=== PATIENT | female | born 2000 | race Two or more races ===

== ENCOUNTER 2025-03-10 09:07 | Outpatient (AMB) | payer MEDICAID, SELFPAY ==
[2025-03-10 09:30] VITALS: BP 100/64; PULSE 98; RESP 17; TEMP 36.6; O2SAT 98; BMI 26.0
--- NOTE | 2025-03-10 09:30 | OBCLNT_ITS ---
Vital Signs 03/10/25 09:30 Height 1.57 m Height Method Stated Weight 64.637 kg Weight Measurement Method Standing Scale BMI 26.0 BP 100/64 Blood Pressure Source Automatic Cuff Blood Pressure Location Right Upper Arm Position Sitting Respiration 17 Pulse 98 Pulse Source Monitor Temp 97.8 F Temp Source Temporal Artery Scan Pulse Oximetry (%) 98 Oxygen Delivery Method Room Air Allergies/Home Meds Allergies & Medications Allergies No Known Allergies Allergy (Verified 03/10/25 09:31) Medication Reconciliation acetaminophen 325 mg tablet (Tylenol) 325 mg PO Q8HR PRN Pain 01/21/24 [History Confirmed 03/10/25] [id number] 1 mg tablet 1 tab PO QDAY 01/21/24 [History Confirmed 03/10/25] Intake Visit Data Collection New Patient or Established: Established Patient (seen at [facility] within 3 years) Reason for Visit:: OBI Seen by Clinical Staff ONLY (RN/MA): No Financial Associate Required: No Do You Feel Safe at Home: Yes Authorities Contacted: N/A PCP or OBGYN visit in last 3 months: Yes Date of Last PCP or OBGYN visit: 01/24/25 Hx Now: Yes Are you currently on any form of Control: No Last menstrual period: 11/06/24 Pain Present Currently: No Pain Scale Used: Osborn-[place]/Numerical Pain scale:: 0 Smoking Status Smoking Status: Never smoker Questionnaires Covid-19 Vaccine Questionnaire Has patient been vacinated for Covid-19 Have you been vacinated for Covid-19: No PHQ-9 PHQ-2 Over the last 2 weeks, how often have you been bothered by any of the following problems? 1. Little interest or pleasure in doing things: not at all 2. Feeling down, depressed, or hopeless: not at all Total score: 0 PHQ-9 3. Trouble falling or staying asleep, or sleeping too much: Not at all 4. Feeling tired or having little energy: Not at all 5. Poor appetite or overeating: Not at all 6. Feeling bad about yourself - or that you are a failure or have let yourself or your family down: Not at all 7. Trouble concentrating on things, such as reading the newspaper or watching television: Not at all 8. Moving or speaking so slowly that other people could have noticed? - Or the opposite - being so fidgety or restless that you have been moving around a lot more than usual: not at all 9. Thoughts that you would be better off or of hurting yourself in some way: Not at all Total score: 0 If you checked off any problems, how difficult have these problems made it for you to do your work, take care of things at home, or get along with other people?: not difficult at all Source: Developed by Drs. Jose E Johnson, Kimberly Veliz, Giovani Douglas and colleagues, with an educational rosemarie from [employer]. 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: Past Medical History Past Medical History: No Hx Neurological Disorders, No Hx Cardiac Disorders, No Hx Cancer, Yes Hx Blood Disorders, Yes Hx Anemia, Yes Hx Gastrointestinal Disorders, No Hx Renal Disease, No Hx Diabetes Mellitus Type 1 and No Hx Diabetes Mellitus Type 2 OB Initial Visit Menstrual History Menstrual reliability: definite Flow: normal Menstrual regularity: regular Monthly: Yes Age at menarche: 14 On control pills at conception: No OB History : 2 Para: 1 # of Living Children: 1 Delivery History 1st : date: 12/11/23 sex: female Delivery type: History of depression before or after : No Infection History & Risk Evaluation History of STDs: none HIV risk evaluation: low risk Hepatitis B risk evaluation: low risk Patient or partner has history of Genital Herpes: No Varicella/chicken pox status: unknown Genetic Screening & History Genetic Screening/Teratology Counseling - Includes patient, baby's father, or anyone in either family with: 1. Patient's age 35 years or older as of estimated date of delivery: No 2. Thalassemia (Persian, Indonesian, Mediterranean, or Background); MCV less than 80: No 3. Neural Tube Defect (Meningomyelocele, Spina Bifida, or Anencephaly): No 4. Congenital Heart Defect: No 5. Down Syndrome: No 6. Yonathan-Sachs (Ashkenazi Church, Cajun, Monegasque [place]): No 7. Woody Disease (Ashkenazi Church): No 8. Familial Dysautonomia (Ashkenazi Church): No 9. Sickle Cell Disease or Trait (): No 10. Hemophilia or other blood disorders: No 11. Muscular Dystrophy: No 12. Cystic Fibrosis: No 13. Roxanne's Chorea: No 14. Mental Retardation/Autism: No 15. Other inherited genetic or chromosomal disorder: No 16. Maternal Metabolic Disorder (EG,TYPE 1 Diabetes, PKU): No 17. Patient or baby's father had a child with defects not listed above: No 18. Recurrent loss or a stillbirth: No 19. Medications (including supplements, vitamins, herbs or otc drugs)/illicit/recreational drugs/alcohol since last menstrual period: No 20. Any other: No Infection History 1. Live with someone with TB or exposed to TB: No 2. Rash or viral illness since last menstrual period: No 3. Hepatitis B,C: No Other (see comments) Source: [employer] [place] [employer] Office Procedures OB Clinic LOC & Office Proc's Nursing/Assessment Patient Status: Established Patient OB Clinic Nursing Assessment: Medication Reconciliation, Update PMH in EMR and Vital Signs OB Clinic Coordination of Care: Complex Care and Chronic Disease 1-5, Consent,records obtained, informed consent, Education Simp Pt/Fam and Staff clarify orders Special Needs: Heart tones Miscellaneous Interventions: Blood/Urine Collection Established Patient Charge Established Patient Point Assignment: 145 Established Patient Point Charge: EP Level 4 (120-155) Results Urine HCG Urine HCG Positive Last Edit by Jane Smith MA on 03/10/25 16:33 Assessment & Plan Diagnosis / Problem List (1) Uterine size date discrepancy: Status: Acute
== END 2025-03-10 10:01 | disposition home or self-care (01) ==
LOC: HODSOBC 09:07
PROVIDERS: Supervising Provider Obstetrics & Gynecology; Visit Provider Obstetrics & Gynecology
DX: O26.849 Uterine size-date discrepancy, unspecified trimester (principal); Z3A.00 Weeks of gestation of pregnancy not specified
CPT/HCPCS: 99214; G0463

== ENCOUNTER → 2025-03-16 | Outpatient (CLI) | payer MEDICAID, SELFPAY ==
--- NOTE | 2025-03-16 10:43 | XR_ITS ---
Examination: Complete OB ultrasound greater than 14 weeks Date and time of exam: March 16, 2025 1107 hours INDICATIONS: Supervision of otherwise normal , unknown size and dates. Findings: Viable intrauterine single fetus with single amniotic sac presentation cephalic Cardiac motion 147 BPM Placenta posterior grade 0 Umbilical cord insertion 3 vessel seen Amniotic fluid index 7.9 cm spine maternal left Cervix 3.4 cm Ovaries obscured by bowel gas. Composite estimated gestational age based on BPD, head circumference, abdominal circumference, femur length is 20 weeks 4 days, estimated weight 363.7 g. Survey of intracranial anatomy, spinal anatomy, abdominal anatomy, four-chamber heart performed with no abnormalities identified. Impression: Viable uterine gestation cephalic presentation.
== END | disposition home or self-care (01) ==
PROVIDERS: Referring Provider Obstetrics & Gynecology; Visit Provider Obstetrics & Gynecology
DX: O26.849 Uterine size-date discrepancy, unspecified trimester (principal); Z3A.20 20 weeks gestation of pregnancy
CPT/HCPCS: 76805

== ENCOUNTER 2025-03-28 08:42 | Outpatient (AMB) | payer MEDICAID, SELFPAY ==
[2025-03-28 08:56] VITALS: BP 102/70; PULSE 77; RESP 17; TEMP 36.7; O2SAT 97; BMI 26.7
--- NOTE | 2025-03-28 08:56 | OBCLNT_ITS ---
Vital Signs 03/28/25 08:56 Height 1.57 m Height Method Measured Weight 65.884 kg Weight Measurement Method Standing Scale BMI 26.7 BP 102/70 Blood Pressure Source Automatic Cuff Blood Pressure Location Right Upper Arm Position Sitting Respiration 17 Pulse 77 Pulse Source Monitor Temp 98.0 F Temp Source Temporal Artery Scan Pulse Oximetry (%) 97 Oxygen Delivery Method Room Air Allergies/Home Meds Allergies & Medications Allergies No Known Allergies Allergy (Verified 03/28/25 08:57) Medication Reconciliation acetaminophen 325 mg tablet (Tylenol) 325 mg PO Q8HR PRN Pain 01/21/24 [History Confirmed 03/28/25] [id number] 1 mg tablet 1 tab PO QDAY 01/21/24 [History Confirmed 03/28/25] Intake Visit Data Collection New Patient or Established: Established Patient (seen at [facility] within 3 years) Reason for Visit:: OBC\US RESULTS Consent obtained for Telemed Visit: No Seen by Clinical Staff ONLY (RN/MA): No 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 1. Little interest or pleasure in doing things: not at all PHQ-9 8. Moving or speaking so slowly that other people could have noticed? - Or the opposite - being so fidgety or restless that you have been moving around a lot more than usual: not at all Source: Developed by Drs. Jose E Johnson, Kimberly Veliz, Giovani Douglas and colleagues, with an educational rosemarie from [employer]. Social History Living Situation History Lives With: Family Housing: House Tobacco History Smoking Status: Never smoker Second Hand Smoke Exposure: No Alcohol History Alcohol Intake: Never Domestic Abuse History Do You Feel Safe at Home: Yes RN [facility]: Past Medical History Past Medical History: No Hx Neurological Disorders, No Hx Cardiac Disorders, No Hx Cancer, Yes Hx Blood Disorders, Yes Hx Anemia, Yes Hx Gastrointestinal Disor ders, No Hx Renal Disease, No Hx Diabetes Mellitus Type 1 and No Hx Diabetes Mellitus Type 2 Care OB Visit Log OB Flowsheet Initial Weight: Not Recorded Date -?-?-?-?-?-?-?-?-?-?-?-?- EGA Weight BP Alb Glu CTX Pres Fundal ht FHR Mov Dilation Station Effacement Hx Notes Visit Note 03/28/25 -?-?-?-?-?-?-?-?-?-?-?-?- 22w 2d 65.884 kg 102/70 absent cephalic 23 145 active - Due date calculated as July 30 based on ultrasound measurements from March 16. - No reported symptoms or concerns men tioned during this visit. - Patient has not yet completed recommended lab work. - Complete labs including genetics, gender testing, basic labs, diabetes screening, and pre-eclampsia screening - One-hour glucose test to be included i n lab work - Follow up in 2 weeks - Attend high-risk ultrasound appointmen t with [facility] in [place] due to history of preeclampsia and growth issues - [facility] [address] [place] Calculator Estimated Delivery Date Method Current WG Current Estimate 07/30/25 Ultrasound #1 24w 2d Office Procedures OB Clinic LOC & Office Proc's Nursing/Assessment Patient Status: Established Patient OB Clinic Nursing Assessment: Medication Reconciliation, Update PMH in EMR and Vital Signs OB Clinic Coordination of Care: Complex Care and Chronic Disease 1-5, Consent,records obtained, informed consent, Education Simp Pt/Fam and Results/Orders obtained Special Needs: Heart tones Established Patient Charge Established Patient Point Assignment: 110 Established Patient Point Charge: EP Level 3 (80-115) Assessment & Plan Diagnosis / Problem List (1) Uterine size date discrepancy: Status: Acute (2) Supervision of high risk , unspecified, second trimester: Status: Acute
== END 2025-03-28 09:22 | disposition home or self-care (01) ==
LOC: HODSOBC 08:42
PROVIDERS: Supervising Provider Obstetrics & Gynecology; Visit Provider Obstetrics & Gynecology
DX: O09.892 Supervision of other high risk pregnancies, second trimester (principal); O26.842 Uterine size-date discrepancy, second trimester; Z3A.22 22 weeks gestation of pregnancy
CPT/HCPCS: 99213; G0463

== ENCOUNTER 2025-04-13 14:33 | Outpatient (AMB) | payer MEDICAID, SELFPAY ==
[2025-04-13 14:49] VITALS: BP 107/73; PULSE 80; RESP 16; TEMP 36.4; O2SAT 98; BMI 27.6
--- NOTE | 2025-04-13 14:49 | OBCLNT_ITS ---
Vital Signs 04/13/25 14:49 Height 1.57 m Height Method Stated Weight 68.492 kg Weight Measurement Method Standing Scale BMI 27.6 BP 107/73 Blood Pressure Source Automatic Cuff Blood Pressure Location Left Upper Arm Position Sitting Respiration 16 Pulse 80 Pulse Source Monitor Temp 97.5 F Temp Source Oral Pulse Oximetry (%) 98 Oxygen Delivery Method Room Air Allergies/Home Meds Allergies & Medications Allergies No Known Allergies Allergy (Verified 05/15/25 10:57) Medication Reconciliation acetaminophen 325 mg tablet (Tylenol) 325 mg PO Q8HR PRN Pain 01/21/24 [History Confirmed 05/15/25] [id number] 1 mg tablet 1 tab PO QDAY 01/21/24 [History Confirmed 05/15/25] Intake Visit Data Collection New Patient or Established: Established Patient (seen at [facility] within 3 years) Reason for Visit:: CARE Seen by Clinical Staff ONLY (RN/MA): No Parking Lot 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 1. Little interest or pleasure in doing things: not at all 2. Feeling down, depressed, or hopeless: not at all Total score: 0 PHQ-9 3. Trouble falling or staying asleep, or sleeping too much: Not at all 4. Feeling tired or having little energy: Not at all 5. Poor appetite or overeating: Not at all 6. Feeling bad about yourself - or that you are a failure or have let yourself or your family down: Not at all 7. Trouble concentrating on things, such as reading the newspaper or watching television: Not at all 8. Moving or speaking so slowly that other people could have noticed? - Or the opposite - being so fidgety or restless that you have been moving around a lot more than usual: not at all 9. Thoughts that you would be better off or of hurting yourself in some way: Not at all Total score: 0 Source: Developed by Drs. Jose E Johnson, Kimberly Veliz, Giovani Douglas and colleagues, with an educational rosemarie from [employer]. 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 Medical History Past Medical History: No Hx Neurological Disorders, No Hx Cardiac Disorders, No Hx Cancer, Yes Hx Blood Disorders, Yes Hx Anemia, Yes Hx Gastrointestinal Disorders, No Hx Renal Disease, No Hx Diabetes Mellitus Type 1 and No Hx Diabetes Mellitus Type 2 Care OB Visit Log OB Flowsheet Initial Weight: Not Recorded Date -?-?-?-?-?-?-?-?-?-?-?-?- EGA Weight BP Alb Glu CTX Pres Fundal ht FHR Mov Dilation Station Effacement Hx Notes Visit Note 03/10/25 -?-?-?-?-?-?-?-?-?-?-?-?- 19w 5d 64.637 kg 100/64 absent cephalic 155 - Natalya Youngblood is a female presenting for initial review for current . - Her last menstrual period was approxim ately January 04 or 2024. - She has a past medical history of gest ational diabetes in a previous . - She reports being checked after her previous and was fine with no ongoing diabetes. - She denies any current symptoms or concerns related to her pregna ncy. - Formal ultrasound to be performed downstairs to confirm gestational dating - Laboratory work to be ordered after co nfirmation of due date from ultrasound - Gender determination via blood tests 03/28/25 -?-?-?-?-?-?-?-?-?-?-?-?- 22w 2d 65.884 kg 102/70 absent cephalic 23 145 active - Due date calculated as July 30 based on ultrasound measurements from March 16. - No reported symptoms or concerns men tioned during this visit. - Patient has not yet completed recommended lab work. - Complete labs including genetics, gender testing, basic labs, diabetes screening, and pre-eclampsia screening - One-hour glucose test to be included i n lab work - Follow up in 2 weeks - Attend high-risk ultrasound appointmen t with [facility] in [place] due to history of preeclampsia and growth issues - [facility] [address] 04/13/25 -?-?-?-?-?-?-?-?-?-?-?-?- 24w 4d 68.492 kg 107/73 absent cephalic 25 145 active - Patient reports doing okay overall with no specific complaints mentioned. - She expresses that she thought she was going to have a boy, noting that a lot of girls run in our family. - Patient confirms she already has one d francesco who will be the big sister. - No symptoms, concerns, or changes in h ealth status since last visit were reported. - Schedule ultra sound appointment within next 3-4 weeks - Next visit in 4 weeks - Order 28-week labs at next appointment [place] Calculator Estimated Delivery Date Method Current WG Current Estimate 07/30/25 Ultrasound #1 29w 1d Notes Visit Date: 04/13/25 Last Updated by: Amilcar Rasmussen MD - Date: 03/28/2025 - Drug screen: Negative - Peptides: Negative - Hepatitis C antibody: Negative - RPR: Non-reactive - Rubella: Non-immune - Blood group: O positive - Antibody screen: Negative - HIV: Non-reactive - CBC: Hemoglobin 9.8 g/dL (anemic), Platelets 276 - Maternity testing: Negative, sex consistent with male - Cystic fibrosis: Negative - One hour glucose: 102 (negative) - Ultrasound (03/16/2025): Due date July 30, sex consistent with male Assessment & Plan Diagnosis / Problem List (1) Supervision of high risk , unspecified, second trimester: Status: Acute (2) Uterine size date discrepancy: Status: Acute Plan Problem List - , 24 weeks and 4 days - Anemia - Rubella non-immune status Assessment 1 para 1 at 24 weeks and 4 days gestation presenting for routine visit. sex consistent with male. Maternal anemia noted with hemoglobin of 9.8. Patient is rubella non-immune. One-hour glucose tolerance test result of 102 mg/dL, negative for gestational diabetes. Blood type O positive with negative antibody screen. Negative results for hepatitis C antibody, RPR, HIV, and drug screen. Normal heart rate of 168 bpm on examination. Plan - Schedule ultrasound appointment within next 3-4 weeks - Next visit in 4 weeks - Order 28-week labs at next appointment 1. Progress Reviewed gestational age (24 weeks 4 days), growth, and heart rate. Planned frequent visits (every 2 weeks until 36 weeks, then weekly). 2. Instructed patient to monitor movements and report decreases immediately. 3. Testing Counseled on routine third-trimester labs per guidelines. Discussed potential need for ultrasound or monitoring based on risk factors. 4. Preeclampsia Precaution Educated on preeclampsia signs: severe headache, vision changes, right upper quadrant pain, sudden swelling. Advised urgent reporting of symptoms and discussed blood pressure monitoring if high risk. 5. Labor Precautions Reviewed labor signs: regular contractions, pelvic pressure, back pain, bleeding, or fluid leakage. Instructed to seek immediate care for these symptoms. 6. Lifestyle and Delivery Preparation Reinforced vitamins, nutrition, and safe activity. Discussed plan, pain management, and . Advised on labor preparation (e.g., hospital bag) and expectations. 7. Psychosocial Support Assessed emotional well-being and offered resources for mental health or parenting support.
== END 2025-04-13 15:23 | disposition home or self-care (01) ==
LOC: HODSOBC 14:33
PROVIDERS: Supervising Provider Obstetrics & Gynecology; Visit Provider Obstetrics & Gynecology
DX: O09.892 Supervision of other high risk pregnancies, second trimester (principal); O26.842 Uterine size-date discrepancy, second trimester; O99.012 Anemia complicating pregnancy, second trimester; Z3A.24 24 weeks gestation of pregnancy; Z78.9 Other specified health status
CPT/HCPCS: 99214; G0463

== ENCOUNTER 2025-05-15 10:53 | Outpatient (AMB) | payer MEDICAID, SELFPAY ==
--- NOTE | 2025-05-15 10:57 | OBCLNT_ITS ---
Vital Signs 05/15/25 11:02 Height 1.57 m Height Method Stated Weight 70.023 kg Weight Measurement Method Standing Scale BMI 28.4 BP 112/73 Blood Pressure Source Automatic Cuff Blood Pressure Location Left Upper Arm Position Sitting Respiration 16 Pulse 100 Pulse Source Monitor Temp 98.2 F Temp Source Oral Pulse Oximetry (%) 99 Oxygen Delivery Method Room Air Allergies/Home Meds Allergies & Medications Allergies No Known Allergies Allergy (Verified 06/16/25 13:34) Medication Reconciliation [id number] 1 mg tablet 1 tab PO QDAY 01/21/24 [History Confirmed 06/16/25] docusate sodium 100 mg capsule (Stool Softener) 100 mg PO QDAY 90 days #90 caps 05/30/25 [Rx Confirmed 06/16/25] ferrous sulfate 325 mg (65 mg iron) tablet 325 mg PO BID 90 days #180 tabs 05/30/25 [Rx Confirmed 06/16/25] cephalexin 500 mg capsule 500 mg PO BID 7 days #14 caps 06/16/25 [Rx] Intake Visit Data Collection New Patient or Established: Established Patient (seen at [facility] within 3 years) Reason for Visit:: OBC Seen by Clinical Staff ONLY (RN/MA): No Analysis Reporting Developer Required: No Do You Feel Safe at Home: Yes Authorities Contacted: N/A PCP or OBGYN visit in last 3 months: Yes Date of Last PCP or OBGYN visit: 04/13/25 Hx Now: Yes Are you currently on any form of Control: No Pain Present Currently: No Pain Scale Used: Osborn-Espana/Numerical Pain scale:: 0 Smoking Status Smoking Status: Never smoker Questionnaires Covid-19 Vaccine Questionnaire Has patient been vacinated for Covid-19 Have you been vacinated for Covid-19: Yes PHQ-9 PHQ-2 Over the last 2 weeks, how often have you been bothered by any of the following problems? 1. Little interest or pleasure in doing things: not at all 2. Feeling down, depressed, or hopeless: not at all Total score: 0 PHQ-9 3. Trouble falling or staying asleep, or sleeping too much: Not at all 4. Feeling tired or having little energy: Not at all 5. Poor appetite or overeating: Not at all 6. Feeling bad about yourself - or that you are a failure or have let yourself or your family down: Not at all 7. Trouble concentrating on things, such as reading the newspaper or watching television: Not at all 8. Moving or speaking so slowly that other people could have noticed? - Or the opposite - being so fidgety or restless that you have been moving around a lot more than usual: not at all 9. Thoughts that you would be better off or of hurting yourself in some way: Not at all Total score: 0 If you checked off any problems, how difficult have these problems made it for you to do your work, take care of things at home, or get along with other people?: not difficult at all Source: Developed by Drs. Jose E Johnson, Kimberly Veliz, Giovani Douglas and colleagues, with an educational rosemarie from [employer]. Depression screen completed yes Social History Living Situation History Marital Status: Single Lives With: Family Housing: House Tobacco History Smoking Status: Never smoker Second Hand Smoke Exposure: No Alcohol History Alcohol Intake: Never Domestic Abuse History Do You Feel Safe at Home: Yes ASSOC[employer]: Past Medical History Past Medical History: No Hx Neurological Disorders, No Hx Cardiac Disorders, No Hx Cancer, Yes Hx Blood Disorders, Yes Hx Anemia, Yes Hx Gastrointestinal Disorders, No Hx Renal Disease, No Hx Diabetes Mellitus Type 1 and No Hx Diabetes Mellitus Type 2 Care OB Visit Log OB Flowsheet Initial Weight: Not Recorded Date -?-?-?-?-?-?-?-?-?-?-?-?- EGA Weight BP Alb Glu CTX Pres Fundal ht FHR Mov Dilation Station Effacement Hx Notes Visit Note 03/10/25 -?-?-?-?-?-?-?-?-?-?-?-?- 19w 5d 64.637 kg 100/64 absent cephalic 155 - Natalya Youngblood is a female presenting for initial review for current . - Her last menstrual period was approxim ately January 04 or 2024. - She has a past medical history of gest ational diabetes in a previous . - She reports being checked after her previous and was fine with no ongoing diabetes. - She denies any current symptoms or concerns related to her pregna ncy. - Formal ultrasound to be performed downstairs to confirm gestational dating - Laboratory work to be ordered after co nfirmation of due date from ultrasound - Gender determination via blood tests 03/28/25 -?-?-?-?-?-?-?-?-?-?-?-?- 22w 2d 65.884 kg 102/70 absent cephalic 23 145 active - Due date calculated as July 30 based on ultrasound measurements from March 16. - No reported symptoms or concerns men tioned during this visit. - Patient has not yet completed recommended lab work. - Complete labs including genetics, gender testing, basic labs, diabetes screening, and pre-eclampsia screening - One-hour glucose test to be included i n lab work - Follow up in 2 weeks - Attend high-risk ultrasound appointmen t with [facility] in [place] due to history of preeclampsia and growth issues - Obtain lab work at [facility] on Priya Bellamy enue 04/13/25 -?-?-?-?-?-?-?-?-?-?-?-?- 24w 4d 68.492 kg 107/73 absent cephalic 25 145 active - Patient reports doing okay overall with no specific complaints mentioned. - She expresses that she thought she was going to have a boy, noting that a lot of girls run in our family. - Patient confirms she already has one d francesco who will be the big sister. - No symptoms, concerns, or changes in h ealth status since last visit were reported. - Schedule ultra sound appointment within next 3-4 weeks - Next visit in 4 weeks - Order 28-week labs at next appointment 05/15/25 -?-?-?-?-?-?-?-?-?-?-?-?- 29w 1d 70.023 kg 112/73 absent cephalic 30 155 active - She reports the baby is active and denies contractions or other issues. - She experiences leg cramps, particular ly at night. - She reports adherence to iron suppleme ntation as prescribed. - She denies cramping, contractions, or leaking fluid. - Check glucose tolerance test results from previous visit - Obtain new set of labs to recheck anem ia status - Increase water intake, especially in t he evening, for leg cramps - Consider magnesium supplementation for leg cramps - Follow up in 2 weeks 05/30/25 -?-?-?-?-?-?-?-?-?-?-?-?- 31w 2d 70.364 kg 111/78 absent cephalic 31 165 active - Patient reports worsening anemia with hemoglobin dropping from 9.8 to 8.9 on repeat labs from -. - She confirms taking only alma mins for supplementation. - Patient reports active movement. - She denies headaches and other preeclampsia warning symptoms. - Start high- dose iron supplementation twice daily in addition to vitamins - Prescribe stool softener to prevent ir on-induced constipation - Repeat labs in one month to reassess h emoglobin levels - Follow up appointment in 2 weeks - Send prescriptions to [facility] 06/16/25 -?-?-?-?-?-?-?-?-?-?-?-?- 33w 5d 73.255 kg 108/74 absent cephalic 34 145 active No contractions, LOF, VB and reports good FM. Denies YATES, VC, and epigastric pain. - She reports urinary frequency and urge ncy. - She denies leaking fluid. - She is taking vitamins and iron supplements as prescribe d. - Prescribe antibiotics for 7 days for urinary symptoms - Continue vitamins and iron oneal pplementation - Increase water intake until urine is c lear/white in color - Follow up in 2 weeks - Culture swab to be performed at next v isit to check for infections [facility] Calculator Estimated Delivery Date Method Current WG Current Estimate 07/30/25 Ultrasound #1 33w 6d Notes Visit Date: 04/13/25 Last Updated by: Amilcar Rasmussen MD - Date: 03/28/2025 - Drug screen: Negative - Peptides: Negative - Hepatitis C antibody: Negative - RPR: Non-reactive - Rubella: Non-immune - Blood group: O positive - Antibody screen: Negative - HIV: Non-reactive - CBC: Hemoglobin 9.8 g/dL (anemic), Platelets 276 - Maternity testing: Negative, sex consistent with male - Cystic fibrosis: Negative - One hour glucose: 102 (negative) - Ultrasound (03/16/2025): Due date July 30, sex consistent with male Office Procedures OBC Clinic LOC & Office Proc's Nursing/Assessment Patient Status: Established Patient OB Clinic Nursing Assessment: Medication Reconciliation, Update PMH in EMR and Vital Signs OB Clinic Coordination of Care: Lab and Imaging orders, Results/Orders obtained and Staff clarify orders Special Needs: Heart tones Established Patient Charge Established Patient Point Assignment: 90 Established Patient Point Charge: EP Level 3 (80-115) Assessment & Plan Diagnosis / Problem List (1) Supervision of high risk , unspecified, third trimester: Status: Acute (2) 30 weeks gestation of : Status: Acute Plan Problem List - , 29 weeks and 1 day - Leg cramps Assessment 29-week, 1-day patient presenting for routine visit. Patient reports leg cramps occurring primarily at night, likely related to dehydration. Patient has been compliant with iron supplementation for previously noted anemia. One-hour glucose tolerance test results require verification, though patient believes it was completed with normal results. Patient denies contractions, cramping, or leaking. activity is reported as normal. Plan - Check glucose tolerance test results from previous visit - Obtain new set of labs to recheck anemia status - Increase water intake, especially in the evening, for leg cramps - Consider magnesium supplementation for leg cramps - Follow up in 2 weeks 1. Progress Reviewed gestational age, growth, and heart rate. Planned frequent visits (every 2 weeks until 36 weeks, then weekly). 2. Instructed patient to monitor movements and report decreases immediately. 3. Testing Counseled on routine third-trimester labs per guidelines. Discussed potential need for ultrasound or monitoring based on risk factors. 4. Preeclampsia Precaution Educated on preeclampsia signs: severe headache, vision changes, right upper quadrant pain, sudden swelling. Advised urgent reporting of symptoms and discussed blood pressure monitoring if high risk. 5. Labor Precautions Reviewed labor signs: regular contractions, pelvic pressure, back pain, bleeding, or fluid leakage. Instructed to seek immediate care for these symptoms. 6. Lifestyle and Delivery Preparation Reinforced vitamins, nutrition, and safe activity. Discussed plan, pain management, and . Advised on labor preparation (e.g., hospital bag) and expectations. 7. Psychosocial Support Assessed emotional well-being and offered resources for mental health or parenting support.
[2025-05-15 11:02] VITALS: BP 112/73; PULSE 100; RESP 16; TEMP 36.8; O2SAT 99; BMI 28.4
== END 2025-05-15 11:20 | disposition home or self-care (01) ==
LOC: HODSOBC 10:53
PROVIDERS: Supervising Provider Obstetrics & Gynecology; Visit Provider Obstetrics & Gynecology
DX: O09.893 Supervision of other high risk pregnancies, third trimester (principal); O99.013 Anemia complicating pregnancy, third trimester; Z3A.30 30 weeks gestation of pregnancy
CPT/HCPCS: 99213; G0463

== ENCOUNTER → 2025-05-18 | Outpatient (CLI) | payer MEDICAID, SELFPAY ==
--- NOTE | 2025-05-18 13:44 | XR_ITS ---
Examination: Complete OB ultrasound greater than 14 weeks Date and time of exam: May 18, 2025, 1347 hours INDICATIONS: Diagnosis size dates discrepancy Findings: Viable intrauterine single fetus with single amniotic sac presentation cephalic Cardiac motion 148 bpm Placenta posterior grade 2 Suspicious for minimal pericardial fluid. Three-vessel umbilical cord Amniotic fluid index 11.2 cm spine posterior Cervix 3.2 cm Right ovary 3.6 cm left ovary 3.2 cm, bilateral arterial flow Composite estimated gestational age based on BPD, head circumference, abdominal circumference, femur length is 30 weeks 3 days Estimated weight 1468 g. Survey of intracranial anatomy, spinal anatomy, abdominal anatomy, four-chamber heart performed with no abnormalities identified. Impression: Viable intrauterine gestation in cephalic presentation Estimated gestational age 30 weeks 3 days.
== END | disposition home or self-care (01) ==
LOC: CDIM 13:24
PROVIDERS: PCP Family Medicine; Referring Provider Obstetrics & Gynecology; Visit Provider Obstetrics & Gynecology
DX: O26.849 Uterine size-date discrepancy, unspecified trimester (principal); Z3A.30 30 weeks gestation of pregnancy
CPT/HCPCS: 76805

== ENCOUNTER 2025-05-30 10:12 | Outpatient (AMB) | payer MEDICAID, SELFPAY ==
[2025-05-30 10:18] VITALS: BP 111/78; PULSE 94; RESP 18; TEMP 36.5; O2SAT 97; BMI 28.5
--- NOTE | 2025-05-30 10:18 | OBCLNT_ITS ---
Vital Signs 05/30/25 10:18 Height 1.57 m Height Method Stated Weight 70.364 kg Weight Measurement Method Standing Scale BMI 28.5 BP 111/78 Blood Pressure Source Automatic Cuff Blood Pressure Location Left Upper Arm Position Sitting Respiration 18 Pulse 94 Pulse Source Monitor Temp 97.7 F Temp Source Oral Pulse Oximetry (%) 97 Oxygen Delivery Method Room Air Allergies/Home Meds Allergies & Medications Allergies No Known Allergies Allergy (Verified 05/30/25 10:19) Medication Reconciliation [id number] 1 mg tablet 1 tab PO QDAY 01/21/24 [History Confirmed 05/30/25] docusate sodium 100 mg capsule (Stool Softener) 100 mg PO QDAY 90 days #90 caps 05/30/25 [Rx] ferrous sulfate 325 mg (65 mg iron) tablet 325 mg PO BID 90 days #180 tabs 05/30/25 [Rx] Intake Visit Data Collection New Patient or Established: Established Patient (seen at [facility] within 3 years) Reason for Visit:: CARE Seen by Clinical Staff ONLY (RN/MA): No Care Transition Mgr Required: No Do You Feel Safe at Home: Yes Authorities Contacted: N/A PCP or OBGYN visit in last 3 months: Yes Hx Now: Yes Are you currently on any form of Control: No Pain Present Currently: No Pain Scale Used: Osborn-Espana/Numerical Pain scale:: 0 Smoking Status Smoking Status: Never smoker Immunizations Flu Vaccine in the Last 12 Months: Yes Flu Vaccine Exclusion Criteria: Already Received Questionnaires Covid-19 Vaccine Questionnaire Has patient been vacinated for Covid-19 Have you been vacinated for Covid-19: Yes PHQ-9 PHQ-2 Over the last 2 weeks, how often have you been bothered by any of the following problems? 1. Little interest or pleasure in doing things: not at all 2. Feeling down, depressed, or hopeless: not at all Total score: 0 PHQ-9 3. Trouble falling or staying asleep, or sleeping too much: Not at all 4. Feeling tired or having little energy: Not at all 5. Poor appetite or overeating: Not at all 6. Feeling bad about yourself - or that you are a failure or have let yourself or your family down: Not at all 7. Trouble concentrating on things, such as reading the newspaper or watching television: Not at all 8. Moving or speaking so slowly that other people could have noticed? - Or the opposite - being so fidgety or restless that you have been moving around a lot more than usual: not at all 9. Thoughts that you would be better off or of hurting yourself in some way: Not at all Total score: 0 Source: Developed by Drs. Jose E Johnson, Kimberly Veliz, Giovani Douglas and colleagues, with an educational rosemarie from [employer]. 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: Past Medical History Past Medical History: No Hx Neurological Disorders, No Hx Cardiac Disorders, No Hx Cancer, Yes Hx Blood Disorders, Yes Hx Anemia, Yes Hx Gastrointestinal Disorders, No Hx Renal Disease, No Hx Diabetes Mellitus Type 1 and No Hx Diabetes Mellitus Type 2 Care OB Visit Log OB Flowsheet Initial Weight: Not Recorded Date -?-?-?-?-?-?-?-?-?-?-?-?- EGA Weight BP Alb Glu CTX Pres Fundal ht FHR Mov Dilation Station Effacement Hx Notes Visit Note 03/10/25 -?-?-?-?-?-?-?-?-?-?-?-?- 19w 5d 64.637 kg 100/64 absent cephalic 155 - Natalya Youngblood is a female presenting for initial review for current . - Her last menstrual period was approxim ately January 04 or 2024. - She has a past medical history of gest ational diabetes in a previous . - She reports being checked after her previous and was fine with no ongoing diabetes. - She denies any current symptoms or concerns related to her pregna ncy. - Formal ultrasound to be performed downstairs to confirm gestational dating - Laboratory work to be ordered after co nfirmation of due date from ultrasound - Gender determination via blood tests 03/28/25 -?-?-?-?-?-?-?-?-?-?-?-?- 22w 2d 65.884 kg 102/70 absent cephalic 23 145 active - Due date calculated as July 30 based on ultrasound measurements from March 16. - No reported symptoms or concerns men tioned during this visit. - Patient has not yet completed recommended lab work. - Complete labs including genetics, gender testing, basic labs, diabetes screening, and pre-eclampsia screening - One-hour glucose test to be included i n lab work - Follow up in 2 weeks - Attend high-risk ultrasound appointmen t with [facility] in [place] due to history of preeclampsia and growth issues - [facility] Priya Bellamy enue 04/13/25 -?-?-?-?-?-?-?-?-?-?-?-?- 24w 4d 68.492 kg 107/73 absent cephalic 25 145 active - Patient reports doing okay overall with no specific complaints mentioned. - She expresses that she thought she was going to have a boy, noting that a lot of girls run in our family. - Patient confirms she already has one d francesco who will be the big sister. - No symptoms, concerns, or changes in h ealth status since last visit were reported. - Schedule ultra sound appointment within next 3-4 weeks - Next visit in 4 weeks - Order 28-week labs at next appointment 05/30/25 -?-?-?-?-?-?-?-?-?-?-?-?- 31w 2d 70.364 kg 111/78 absent cephalic 31 165 active - Patient reports worsening anemia with hemoglobin dropping from 9.8 to 8.9 on repeat labs from -13. - She confirms taking only alma mins for supplementation. - Patient reports active movement. - She denies headaches and other preeclampsia warning symptoms. - Start high- dose iron supplementation twice daily in addition to vitamins - Prescribe stool softener to prevent ir on-induced constipation - Repeat labs in one month to reassess h emoglobin levels - Follow up appointment in 2 weeks - Send prescriptions to [facility] Calculator Estimated Delivery Date Method Current WG Current Estimate 07/30/25 Ultrasound #1 31w 2d Notes Visit Date: 04/13/25 Last Updated by: Amilcar Rasmussen MD - Date: 03/28/2025 - Drug screen: Negative - Peptides: Negative - Hepatitis C antibody: Negative - RPR: Non-reactive - Rubella: Non-immune - Blood group: O positive - Antibody screen: Negative - HIV: Non-reactive - CBC: Hemoglobin 9.8 g/dL (anemic), Platelets 276 - Maternity testing: Negative, sex consistent with male - Cystic fibrosis: Negative - One hour glucose: 102 (negative) - Ultrasound (03/16/2025): Due date July 30, sex consistent with male Office Procedures OBC Clinic LOC & Office Proc's Nursing/Assessment Patient Status: Established Patient OB Clinic Nursing Assessment: Medication Reconciliation, Update PMH in EMR and Vital Signs OB Clinic Coordination of Care: Complex Care and Chronic Disease 1-5, Consent,records obtained, informed consent, Education Simp Pt/Fam, 1 Ins Authorization, Lab and Imaging orders, Results/Orders obtained and Staff clarify orders Special Needs: Heart tones Established Patient Charge Established Patient Point Assignment: 150 Established Patient Point Charge: EP Level 4 (120-155) Assessment & Plan Diagnosis / Problem List (1) Supervision of high risk , unspecified, third trimester: Status: Acute (2) Anemia affecting : Status: Acute Plan Problem List - Anemia in - Preeclampsia - growth restriction Assessment 31-week, 2-day patient with worsening anemia, hemoglobin decreased from 9.8 to 8.9 g/dL on repeat labs from 10-13, currently taking only vitamins. Patient has history of preeclampsia and growth restriction. RPR is non-reactive. Patient reports active movement and denies headaches or other preeclamptic symptoms. heart rate is 136 bpm, which is normal. Plan - Start high-dose iron supplementation twice daily in addition to vitamins - Prescribe stool softener to prevent iron-induced constipation - Repeat labs in one month to reassess hemoglobin levels - Follow up appointment in 2 weeks - Send prescriptions to [facility] pharmacy 1. Progress Reviewed gestational age (31 weeks and 2 days), growth, and heart rate (136 bpm, normal). Planned frequent visits (every 2 weeks until 36 weeks, then weekly). 2. Instructed patient to monitor movements and report decreases immediately. 3. Testing Counseled on routine third-trimester labs per guidelines. Discussed potential need for ultrasound or monitoring based on risk factors. 4. Preeclampsia Precaution Educated on preeclampsia signs: severe headache, vision changes, right upper quadrant pain, sudden swelling. Advised urgent reporting of symptoms and discussed blood pressure monitoring if high risk. 5. Labor Precautions Reviewed labor signs: regular contractions, pelvic pressure, back pain, bleeding, or fluid leakage. Instructed to seek immediate care for these symptoms. 6. Lifestyle and Delivery Preparation Reinforced vitamins, nutrition, and safe activity. Discussed plan, pain management, and . Advised on labor preparation (e.g., hospital bag) and expectations. 7. Psychosocial Support Assessed emotional well-being and offered resources for mental health or parenting support.
== END 2025-05-30 10:44 | disposition home or self-care (01) ==
LOC: HODSOBC 10:12
PROVIDERS: Supervising Provider Obstetrics & Gynecology; Visit Provider Obstetrics & Gynecology
DX: O09.893 Supervision of other high risk pregnancies, third trimester (principal); O99.013 Anemia complicating pregnancy, third trimester; O09.293 Supervision of pregnancy with other poor reproductive or obstetric history, third trimester; Z3A.31 31 weeks gestation of pregnancy; Z87.59 Personal history of other complications of pregnancy, childbirth and the puerperium
CPT/HCPCS: 99214; G0463

== ENCOUNTER 2025-06-16 09:34 | Outpatient (AMB) | payer MEDICAID, SELFPAY ==
[2025-06-16 13:33] VITALS: BP 108/74; PULSE 89; RESP 18; TEMP 36.3; O2SAT 99; BMI 29.7
--- NOTE | 2025-06-16 13:33 | OBCLNT_ITS ---
Vital Signs 06/16/25 13:33 Height 1.57 m Height Method Stated Weight 73.255 kg Weight Measurement Method Standing Scale BMI 29.7 BP 108/74 Blood Pressure Source Automatic Cuff Blood Pressure Location Right Upper Arm Position Sitting Respiration 18 Pulse 89 Pulse Source Monitor Temp 97.4 F Temp Source Temporal Artery Scan Pulse Oximetry (%) 99 Oxygen Delivery Method Room Air Allergies/Home Meds Allergies & Medications Allergies No Known Allergies Allergy (Verified 06/16/25 13:34) Medication Reconciliation [id number] 1 mg tablet 1 tab PO QDAY 01/21/24 [History Confi rmed 06/16/25] docusate sodium 100 mg capsule (Stool Softener) 100 mg PO QDAY 90 days #90 caps 05/30/25 [Rx Confirmed 06/16/25] ferrous sulfate 325 mg (65 mg iron) tablet 325 mg PO BID 90 days #180 tabs 05/30/25 [Rx Confirmed 06/16/25] cephalexin 500 mg capsule 500 mg PO BID 7 days #14 caps 06/16/25 [Rx] Intake Visit Data Collection New Patient or Established: Established Patient (seen at [facility] within 3 years) Reason for Visit:: OBC Seen by Clinical Staff ONLY (RN/MA): No Director Distribution Required: No Do You Feel Safe at Home: Yes Authorities Contacted: N/A PCP or OBGYN visit in last 3 months: Yes Date of Last PCP or OBGYN visit: 05/30/25 Hx Now: Yes Are you currently on any form of Control: No Pain Present Currently: Yes Pain Location: Abdomen Pain Scale Used: [place]/Numerical Pain scale:: 4 Smoking Status Smoking Status: Never smoker Immunizations Flu Vaccine in the Last 12 Months: No Flu Vaccine Exclusion Criteria: No Exclusion Criteria Questionnaires Covid-19 Vaccine Questionnaire Has patient been vacinated for Covid-19 Have you been vacinated for Covid-19: No PHQ-9 PHQ-2 Over the last 2 weeks, how often have you been bothered by any of the following problems? 1. Little interest or pleasure in doing things: not at all 2. Feeling down, depressed, or hopeless: not at all Total score: 0 PHQ-9 3. Trouble falling or staying asleep, or sleeping too much: Not at all 4. Feeling tired or having little energy: Not at all 5. Poor appetite or overeating: Not at all 6. Feeling bad about yourself - or that you are a failure or have let yourself or your family down: Not at all 7. Trouble concentrating on things, such as reading the newspaper or watching television: Not at all 8. Moving or speaking so slowly that other people could have noticed? - Or the opposite - being so fidgety or restless that you have been moving around a lot more than usual: not at all 9. Thoughts that you would be better off or of hurting yourself in some way: Not at all Total score: 0 If you checked off any problems, how difficult have these problems made it for you to do your work, take care of things at home, or get along with other people?: not difficult at all Source: Developed by Drs. Jose E Johnson, Kimberly Veliz, Giovani Douglas and colleagues, with an educational rosemarie from [employer]. 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: Past Medical History Past Medical History: No Hx Neurological Disorders, No Hx Cardiac Disorders, No Hx Cancer, Yes Hx Blood Disorders, Yes Hx Anemia, Yes Hx Gastrointestinal Disorders, No Hx Renal Disease, No Hx Diabetes Mellitus Type 1 and No Hx Diabetes Mellitus Type 2 Care OB Visit Log OB Flowsheet Initial Weight: Not Recorded Date -?-?-?-?-?-?-?-?-?-?-?-?- EGA Weight BP Alb Glu CTX Pres Fundal ht FHR Mov Dilation Station Effacement Hx Notes Visit Note 03/10/25 -?-?-?-?-?-?-?-?-?-?-?-?- 19w 5d 64.637 kg 100/64 absent cephalic 155 - Natalya Youngblood is a female presenting for initial review for current . - Her last menstrual period was approxim ately January 04 or 2024. - She has a past medical history of gest ational diabetes in a previous . - She reports being checked after her previous and was fine with no ongoing diabetes. - She denies any current symptoms or concerns related to her pregna ncy. - Formal ultrasound to be performed downstairs to confirm gestational dating - Laboratory work to be ordered after co nfirmation of due date from ultrasound - Gender determination via blood tests 03/28/25 -?-?-?-?-?-?-?-?-?-?-?-?- 22w 2d 65.884 kg 102/70 absent cephalic 23 145 active - Due date calculated as July 30 based on ultrasound measurements from March 16. - No reported symptoms or concerns men tioned during this visit. - Patient has not yet completed recommended lab work. - Complete pr enatal labs including genetics, gender testing, basic labs, diabetes screening, and pre-eclampsia screening - One-hour glucose test to be included i n lab work - Follow up in 2 weeks - Attend high-risk ultrasound appointmen t with [facility] in [place] due to history of preeclampsia and growth issues - Obtain lab work at [facility] on Priya Bellamy enue 04/13/25 -?-?-?-?-?-?-?-?-?-?-?-?- 24w 4d 68.492 kg 107/73 absent cephalic 25 145 active - Patient reports doing okay overall with no specific complaints mentioned. - She expresses that she thought she was going to have a boy, noting that a lot of girls run in our family. - Patient confirms she already has one d adalier who will be the big sister. - No symptoms, concerns, or changes in h ealth status since last visit were reported. - Schedule ultra sound appointment within next 3-4 weeks - Next visit in 4 weeks - Order 28-week labs at next appointment 05/30/25 -?-?-?-?-?-?-?-?-?-?-?-?- 31w 2d 70.364 kg 111/78 absent cephalic 31 165 active - Patient reports worsening anemia with hemoglobin dropping from 9.8 to 8.9 on repeat labs from -. - She confirms taking only alma mins for supplementation. - Patient reports active movement. - She denies headaches and other preeclampsia warning symptoms. - Start high- dose iron supplementation twice daily in addition to vitamins - Prescribe stool softener to prevent ir on-induced constipation - Repeat labs in one month to reassess h emoglobin levels - Follow up appointment in 2 weeks - Send prescriptions to [email or web address] 06/16/25 -?-?-?-?-?-?-?-?-?-?-?-?- 33w 5d 73.255 kg 108/74 absent cephalic 34 145 active No contractions, LOF, VB and reports good FM. Denies YATES, VC, and epigastric pain. - She reports urinary frequency and urge ncy. - She denies leaking fluid. - She is taking vitamins and iron supplements as prescribe d. - Prescribe antibiotics for 7 days for urinary symptoms - Continue vitamins and iron oneal pplementation - Increase water intake until urine is c lear/white in color - Follow up in 2 weeks - Culture swab to be performed at next v isit to check for infections LAWRENCE Calculator Estimated Delivery Date Method Current WG Current Estimate 07/30/25 Ultrasound #1 33w 5d Notes Visit Date: 04/13/25 Last Updated by: Amilcar Rasmussen MD - Date: 03/28/2025 - Drug screen: Negative - Peptides: Negative - Hepatitis C antibody: Negative - RPR: Non-reactive - Rubella: Non-immune - Blood group: O positive - Antibody screen: Negative - HIV: Non-reactive - CBC: Hemoglobin 9.8 g/dL (anemic), Platelets 276 - Maternity testing: Negative, sex consistent with male - Cystic fibrosis: Negative - One hour glucose: 102 (negative) - Ultrasound (03/16/2025): Due date July 30, sex consistent with male Office Procedures OBC Clinic LOC & Office Proc's Nursing/Assessment Patient Status: Established Patient OB Clinic Nursing Assessment: Medication Reconciliation, Update PMH in EMR and Vital Signs OB Clinic Coordination of Care: Complex Care and Chronic Disease 1-5, Education Complex Pt/Fam, Consent,records obtained, informed consent, Results/Orders obtained and Staff clarify orders Special Needs: Heart tones Miscellaneous Interventions: Blood/Urine Collection Established Patient Charge Established Patient Point Assignment: 155 Established Patient Point Charge: EP Level 4 (120-155) Assessment & Plan Diagnosis / Problem List (1) UTI in : Status: Acute (2) Supervision of high risk , unspecified, third trimester: Status: Acute (3) Anemia affecting : Status: Acute Plan Problem List - Urinary tract infection - at 33 weeks 4 days gestation Assessment 33-week 4-day patient presenting with urinary frequency and urgency. Urine dipstick reveals glucosides 1+, with nitrites, proteins, bilirubin, ketones, and glucose all negative. heart rate is 145 bpm, which is normal. Patient reports stretching sensations consistent with normal growth and positioning, with no fluid leakage reported. Plan - Prescribe antibiotics for 7 days for urinary symptoms - Continue vitamins and iron supplementation - Increase water intake until urine is clear/white in color - Follow up in 2 weeks - Culture swab to be performed at next visit to check for infections 1. Progress Reviewed gestational age (33 weeks 4 days), growth, and heart rate (145 bpm, normal). Planned frequent visits (every 2 weeks until 36 weeks, then weekly). 2. Instructed patient to monitor movements and report decreases immediately. 3. Testing Counseled on routine third-trimester labs per guidelines. Discussed potential need for ultrasound or monitoring based on risk factors. Culture swap scheduled for next appointment. 4. Preeclampsia Precaution Educated on preeclampsia signs: severe headache, vision changes, right upper quadrant pain, sudden swelling. Advised urgent reporting of symptoms and discussed blood pressure monitoring if high risk. 5. Labor Precautions Reviewed labor signs: regular contractions, pelvic pressure, back pain, bleeding, or fluid leakage. Instructed to seek immediate care for these symptoms. Discussed importance of treating urinary tract infection to prevent labor. 6. Lifestyle and Delivery Preparation Reinforced vitamins and iron supplementation, nutrition, and safe activity. Discussed plan, pain management, and . Advised on labor preparation (e.g., hospital bag) and expectations. Emphasized adequate hydration (urine should be clear/white). 7. Psychosocial Support Assessed emotional well-being and offered resources for mental health or parenting support.
== END 2025-06-16 13:55 | disposition home or self-care (01) ==
LOC: HODSOBC 09:34
PROVIDERS: Supervising Provider Obstetrics & Gynecology; Visit Provider Obstetrics & Gynecology
DX: O09.893 Supervision of other high risk pregnancies, third trimester (principal); O23.43 Unspecified infection of urinary tract in pregnancy, third trimester; O99.013 Anemia complicating pregnancy, third trimester; Z3A.33 33 weeks gestation of pregnancy
CPT/HCPCS: 99214; G0463

== ENCOUNTER 2025-06-28 10:30 | Outpatient (AMB) | payer MEDICAID, SELFPAY ==
--- NOTE | 2025-06-28 11:03 | OBCLNT_ITS ---
Vital Signs 06/28/25 11:04 Height 1.57 m Height Method Stated Weight 72.688 kg Weight Measurement Method Standing Scale BMI 29.5 BP 114/76 Blood Pressure Source Automatic Cuff Blood Pressure Location Right Upper Arm Position Sitting Respiration 18 Pulse 71 Pulse Source Monitor Temp 98.2 F Temp Source Temporal Artery Scan Pulse Oximetry (%) 97 Oxygen Delivery Method Room Air Allergies/Home Meds Allergies & Medications Allergies No Known Allergies Allergy (Verified 06/28/25 11:05) Medication Reconciliation [id number] 1 mg tablet 1 tab PO QDAY 01/21/24 [History Confi rmed 06/28/25] docusate sodium 100 mg capsule (Stool Softener) 100 mg PO QDAY 90 days #90 caps 05/30/25 [Rx Confirmed 06/28/25] ferrous sulfate 325 mg (65 mg iron) tablet 325 mg PO BID 90 days #180 tabs 05/30/25 [Rx Confirmed 06/28/25] Immunizations Immunizations Flu Vaccine in the Last 12 Months: No Flu Vaccine Exclusion Criteria: No Exclusion Criteria Care OB Visit Log OB Flowsheet Initial Weight: Not Recorded Date -?-?-?-?-?-?-?-?-?-?-?-?- EGA Weight BP Alb Glu CTX Pres Fundal ht FHR Mov Dilation Station Effacement Hx Notes Visit Note 03/10/25 -?-?-?-?-?-?-?-?-?-?-?-?- 19w 5d 64.637 kg 100/64 absent cephalic 155 - Natalya Youngblood is a female presenting for initial review for current . - Her last menstrual period was approxim ately January 04 or 2024. - She has a past medical history of gest ational diabetes in a previous . - She reports being checked after her previous and was fine with no ongoing diabetes. - She denies any current symptoms or concerns related to her pregna ncy. - Formal ultrasound to be performed downstairs to confirm gestational dating - Laboratory work to be ordered after co nfirmation of due date from ultrasound - Gender determination via blood tests 03/28/25 -?-?-?-?-?-?-?-?-?-?-?-?- 22w 2d 65.884 kg 102/70 absent cephalic 23 145 active - Due date calculated as July 30 based on ultrasound measurements from March 16. - No reported symptoms or concerns men tioned during this visit. - Patient has not yet completed recommended lab work. - Complete labs including genetics, gender testing, basic labs, diabetes screening, and pre-eclampsia screening - One-hour glucose test to be included i n lab work - Follow up in 2 weeks - Attend high-risk ultrasound appointmen t with [facility] in [place] due to history of preeclampsia and growth issues - [facility] on Priya Bellamy enue 04/13/25 -?-?-?-?-?-?-?-?-?-?-?-?- 24w 4d 68.492 kg 107/73 absent cephalic 25 145 active - Patient reports doing okay overall with no specific complaints mentioned. - She expresses that she thought she was going to have a boy, noting that a lot of girls run in our family. - Patient confirms she already has one d francesco who will be the big sister. - No symptoms, concerns, or changes in h ealth status since last visit were reported. - Schedule ultra sound appointment within next 3-4 weeks - Next visit in 4 weeks - Order 28-week labs at next appointment 05/15/25 -?-?-?-?-?-?-?-?-?-?-?-?- 29w 1d 70.023 kg 112/73 absent cephalic 30 155 active - She reports the baby is active and denies contractions or other issues. - She experiences leg cramps, particular ly at night. - She reports adherence to iron suppleme ntation as prescribed. - She denies cramping, contractions, or leaking fluid. - Check glucose tolerance test results from previous visit - Obtain new set of labs to recheck anem ia status - Increase water intake, especially in t he evening, for leg cramps - Consider magnesium supplementation for leg cramps - Follow up in 2 weeks 05/30/25 -?-?-?-?-?-?-?-?-?-?-?-?- 31w 2d 70.364 kg 111/78 absent cephalic 31 165 active - Patient reports worsening anemia with hemoglobin dropping from 9.8 to 8.9 on repeat labs from -. - She confirms taking only alma mins for supplementation. - Patient reports active movement. - She denies headaches and other preeclampsia warning symptoms. - Start high- dose iron supplementation twice daily in addition to vitamins - Prescribe stool softener to prevent ir on-induced constipation - Repeat labs in one month to reassess h emoglobin levels - Follow up appointment in 2 weeks - Send prescriptions to [facility] 06/16/25 -?-?-?-?-?-?-?-?-?-?-?-?- 33w 5d 73.255 kg 108/74 absent cephalic 34 145 active No contractions, LOF, VB and reports good FM. Denies YATES, VC, and epigastric pain. - She reports urinary frequency and urge ncy. - She denies leaking fluid. - She is taking vitamins and iron supplements as prescribe d. - Prescribe antibiotics for 7 days for urinary symptoms - Continue vitamins and iron oneal pplementation - Increase water intake until urine is c lear/white in color - Follow up in 2 weeks - Culture swab to be performed at next v isit to check for infections 06/28/25 -?-?-?-?-?-?-?-?-?-?-?-?- 35w 3d 72.688 kg 114/76 absent cephalic 36 155 active - She reports feeling good overall with no contractions. - Baby remains active with normal moveme nt patterns. - She experiences constant pelvic pressu re that does not fluctuate or come and go. - She has not received any calls from [facility] regarding referral for additional ultrasounds despite a referral being sent. - She denies any leaking of fluid or stronger contractions. - Weekly follow-up visits from now onwards - Group B strep culture performed today - If Group B strep positive, will receiv e antibiotics during delivery - Return to hospital (4th floor, open ) for stronger contractions, leaking, or decreased movement (baby not active for more than 2 hours) - Follow up regarding [facility] referral that patient has not received LAWRENCE Calculator Estimated Delivery Date Method Current WG Current Estimate 07/30/25 Ultrasound #1 35w 5d Notes Visit Date: 04/13/25 Last Updated by: Amilcar Rasmussen MD - Date: 03/28/2025 - Drug screen: Negative - Peptides: Negative - Hepatitis C antibody: Negative - RPR: Non-reactive - Rubella: Non-immune - Blood group: O positive - Antibody screen: Negative - HIV: Non-reactive - CBC: Hemoglobin 9.8 g/dL (anemic), Platelets 276 - Maternity testing: Negative, sex consistent with male - Cystic fibrosis: Negative - One hour glucose: 102 (negative) - Ultrasound (03/16/2025): Due date July 30, sex consistent with male Office Procedures OBC Clinic LOC & Office Proc's Nursing/Assessment Patient Status: Established Patient OB Clinic Nursing Assessment: Medication Reconciliation, Update PMH in EMR and Vital Signs OB Clinic Coordination of Care: Complex Care and Chronic Disease 1-5, Education Complex Pt/Fam, Consent,records obtained, informed consent, Lab and Imaging orders, Results/Orders obtained and Staff clarify orders Special Needs: Heart tones Miscellaneous Interventions: Culture Specimen Collection Established Patient Charge Established Patient Point Assignment: 155 Established Patient Point Charge: EP Level 4 (120-155) Assessment & Plan Diagnosis / Problem List (1) Supervision of high risk , unspecified, third trimester: Status: Acute Plan Problem List - Preeclampsia - growth restriction - at 35 weeks and 3 days gestation Assessment 35-week 3-day patient with history of preeclampsia and growth restriction (FGR) under high-risk surveillance. Patient reports constant pelvic pressure without contractions, active movement, and normal heart rate of 130 bpm. Group B strep screening was performed during this visit. Plan - Weekly follow-up visits from now onwards - Group B strep culture performed today - If Group B strep positive, will receive antibiotics during delivery - Return to hospital (4th floor, open 23/02) for stronger contractions, leaking, or decreased movement (baby not active for more than 2 hours) - Follow up regarding [facility]'s referral that patient has not received 1. Progress Reviewed gestational age (35 weeks 3 days), growth, and heart rate (130 bpm, normal). Planned frequent visits (weekly from now onwards). 2. Instructed patient to monitor movements and report if baby is not active for more than 2 hours at a time. 3. Testing Performed Group B Strep culture screening. Discussed potential need for ultrasound monitoring based on high-risk status (history of preeclampsia and FGR). 4. Preeclampsia Precaution Patient has history of preeclampsia and is under high-risk surveillance. 5. Labor Precautions Reviewed labor signs: advised to come to hospital for stronger contractions, leaking fluid, or decreased movement. Instructed that constant pelvic pressure is normal but to watch for contractions that squeeze hard and go away. 6. Lifestyle and Delivery Preparation Discussed that discomfort increases toward the end of . Advised on when to seek immediate care and that labor and delivery is available 24/ on 4th floor. 7. Psychosocial Support Patient reported feeling good with no concerns expressed during visit.
[2025-06-28 11:04] VITALS: BP 114/76; PULSE 71; RESP 18; TEMP 36.8; O2SAT 97; BMI 29.5
== END 2025-06-28 11:22 | disposition home or self-care (01) ==
LOC: HODSOBC 10:30
PROVIDERS: Supervising Provider Obstetrics & Gynecology; Visit Provider Obstetrics & Gynecology
DX: O09.893 Supervision of other high risk pregnancies, third trimester (principal); O36.5930 Maternal care for other known or suspected poor fetal growth, third trimester, not applicable or unspecified; Z3A.35 35 weeks gestation of pregnancy; Z87.59 Personal history of other complications of pregnancy, childbirth and the puerperium; Z36.85 Encounter for antenatal screening for Streptococcus B
CPT/HCPCS: 99214; G0463

== ENCOUNTER 2025-07-14 10:34 | Outpatient (AMB) | payer MEDICAID, SELFPAY ==
[2025-07-14 10:46] VITALS: BP 116/81; PULSE 74; RESP 16; TEMP 36.5; O2SAT 97
--- NOTE | 2025-07-14 10:46 | OBCLNT_ITS ---
Vital Signs 07/14/25 10:46 Height 1.57 m Height Method Stated Weight 74.049 kg Weight Measurement Method Standing Scale BMI 30.0 BP 116/81 Blood Pressure Source Automatic Cuff Blood Pressure Location Left Upper Arm Position Sitting Respiration 16 Pulse 74 Pulse Source Monitor Temp 97.7 F Temp Source Oral Pulse Oximetry (%) 97 Oxygen Delivery Method Room Air Allergies/Home Meds Allergies & Medications Allergies No Known Allergies Allergy (Verified 07/14/25 10:47) Medication Reconciliation kkblhtqh-zqq-Go-FA 1 mg tablet 1 tab PO QDAY 01/21/24 [History Confirmed 07/14/25] docusate sodium 100 mg capsule (Stool Softener) 100 mg PO QDAY 90 days #90 caps 05/30/25 [Rx Confirmed 07/14/25] ferrous sulfate 325 mg (65 mg iron) tablet 325 mg PO BID 90 days #180 tabs 05/30/25 [Rx Confirmed 07/14/25] Immunizations Immunizations Flu Vaccine in the Last 12 Months: Yes Date of most recent flu vaccination: 07/14/25 Flu Vaccine Exclusion Criteria: Already Received Care OB Visit Log OB Flowsheet Initial Weight: Not Recorded Date -?-?-?-?-?-?-?-?-?-?-?-?- EGA Weight BP Alb Glu CTX Pres Fundal ht FHR Mov Dilation Station Effacement Hx Notes Visit Note 03/10/25 -?-?-?-?-?-?-?-?-?-?-?-?- 19w 5d 64.637 kg 100/64 absent cephalic 155 - Natalya Youngblood is a female presenting for initial review for current . - Her last menstrual period was approxim ately January 04 or 2024. - She has a past medical history of gest ational diabetes in a previous . - She reports being checked after her previous and was fine with no ongoing diabetes. - She denies any current symptoms or concerns related to her pregna ncy. - Formal ultrasound to be performed downstairs to confirm gestational dating - Laboratory work to be ordered after co nfirmation of due date from ultrasound - Gender determination via blood tests 03/28/25 -?-?-?-?-?-?-?-?-?-?-?-?- 22w 2d 65.884 kg 102/70 absent cephalic 23 145 active - Due date calculated as July 30 based on ultrasound measurements from March 16. - No reported symptoms or concerns men tioned during this visit. - Patient has not yet completed recommended lab work. - Complete labs including genetics, gender testing, basic labs, diabetes screening, and pre-eclampsia screening - One-hour glucose test to be included i n lab work - Follow up in 2 weeks - Attend high-risk ultrasound appointmen t with [facility] in [place] due to history of preeclampsia and growth issues - Obtain lab work at [facility] on Priya Bellamy enue 04/13/25 -?-?-?-?-?-?-?-?-?-?-?-?- 24w 4d 68.492 kg 107/73 absent cephalic 25 145 active - Patient reports doing okay overall with no specific complaints mentioned. - She expresses that she thought she was going to have a boy, noting that a lot of girls run in our family. - Patient confirms she already has one best maya who will be the big sister. - No symptoms, concerns, or changes in h ealth status since last visit were reported. - Schedule ultra sound appointment within next 3-4 weeks - Next visit in 4 weeks - Order 28-week labs at next appointment 05/15/25 -?-?-?-?-?-?-?-?-?-?-?-?- 29w 1d 70.023 kg 112/73 absent cephalic 30 155 active - She reports the baby is active and denies contractions or other issues. - She experiences leg cramps, particular ly at night. - She reports adherence to iron suppleme ntation as prescribed. - She denies cramping, contractions, or leaking fluid. - Check glucose tolerance test results from previous visit - Obtain new set of labs to recheck anem ia status - Increase water intake, especially in t he evening, for leg cramps - Consider magnesium supplementation for leg cramps - Follow up in 2 weeks 05/30/25 -?-?-?-?-?-?-?-?-?-?-?-?- 31w 2d 70.364 kg 111/78 absent cephalic 31 165 active - Patient reports worsening anemia with hemoglobin dropping from 9.8 to 8.9 on repeat labs from -. - She confirms taking only alma mins for supplementation. - Patient reports active movement. - She denies headaches and other preeclampsia warning symptoms. - Start high- dose iron supplementation twice daily in addition to vitamins - Prescribe stool softener to prevent ir on-induced constipation - Repeat labs in one month to reassess h emoglobin levels - Follow up appointment in 2 weeks - Send prescriptions to [facility] 06/16/25 -?-?-?-?-?-?-?-?-?-?-?-?- 33w 5d 73.255 kg 108/74 absent cephalic 34 145 active No contractions, LOF, VB and reports good FM. Denies YATES, VC, and epigastric pain. - She reports urinary frequency and urge ncy. - She denies leaking fluid. - She is taking vitamins and iron supplements as prescribe d. - Prescribe antibiotics for 7 days for urinary symptoms - Continue vitamins and iron oneal pplementation - Increase water intake until urine is c lear/white in color - Follow up in 2 weeks - Culture swab to be performed at next isit to check for infections 06/28/25 -?-?-?-?-?-?-?-?-?-?-?-?- 35w 3d 72.688 kg 114/76 absent cephalic 36 155 active - She reports feeling good overall with no contractions. - Baby remains active with normal moveme nt patterns. - She experiences constant pelvic pressu re that does not fluctuate or come and go. - She has not received any calls from [facility] regarding referral for additional ultrasounds despite a referral being sent. - She denies any leaking of fluid or stronger contractions. - Weekly follow-up visits from now onwards - Group B strep culture performed today - If Group B strep positive, will receiv e antibiotics during delivery - Return to hospital (4th floor, open ) for stronger contractions, leaking, or decreased movement (baby not active for more than 2 hours) - Follow up regarding [facility] referral that patient has not received 07/14/25 -?-?-?-?-?-?-?-?-?-?-?-?- 37w 5d 74.049 kg 116/81 absent cephalic 38 165 active - She previously complained of constant pelvic pressure and was recently treated for UTI. - She is requesting the flu shot today. - She reports the baby is active. - She denies contractions or leaking fluid. - Follow up in one week (at approximately 39 weeks gestation) - Cervical examination at next visit - Ultrasound to be performed at next ezequiel ointment - Schedule next appointment on to avoid Thursday scheduling delays LAWRENCE Calculator Estimated Delivery Date Method Current WG Current Estimate 07/30/25 Ultrasound #1 37w 5d Notes Visit Date: 04/13/25 Last Updated by: Amilcar Rasmussen MD - Date: 03/28/2025 - Drug screen: Negative - Peptides: Negative - Hepatitis C antibody: Negative - RPR: Non-reactive - Rubella: Non-immune - Blood group: O positive - Antibody screen: Negative - HIV: Non-reactive - CBC: Hemoglobin 9.8 g/dL (anemic), Platelets 276 - Maternity testing: Negative, sex consistent with male - Cystic fibrosis: Negative - One hour glucose: 102 (negative) - Ultrasound (03/16/2025): Due date July 30, sex consistent with male Immunizations flu vac ts (6mos up)-PF 45 mcg(15mcg x3)/0.5 mL IM syringe Performing Provider: Amilcar Rasmussen MD Performing Location: [facility] Administered by: Jannet Jay MA on 07/14/25 11:56 Dose Route Admin Location Dispensed Lot Number Expiration Date Pack age NDC NDC Warp Preparer 0.5 mL IM Left Deltoid 0.5 mL [id number] 01/30/26 [id number] [employer] VIS Given Date VIS Provided VIS Publication Date 07/14/25 Single Vaccine 24 Eligibility Eligibility Date Funding Source Public Non-[facility] Assessment & Plan Diagnosis / Problem List (1) UTI in : Status: Acute (2) Supervision of high risk , unspecified, third trimester: Status: Acute Plan Problem List - Preeclampsia - Urinary tract infection Assessment 37-week 5-day patient, , with history of preeclampsia in prior , presenting for routine visit. Patient previously complained of constant pelvic pressure and was recently treated for UTI; however, culture swab from last visit returned negative. Patient reports active movement with no contractions or leaking. Vital signs show normal heart rate at 125 bpm. Patient has surpassed 37 weeks gestation and is now considered term. Plan - Follow up in one week (at approximately 39 weeks gestation) - Cervical examination at next visit - Ultrasound to be performed at next appointment - Schedule next appointment on to avoid Thursday scheduling delays 1. Progress Reviewed gestational age at 37 weeks and 5 days, growth, and heart rate at 125 bpm which is normal. Planned frequent visits with weekly appointments now that patient has reached 37 weeks. 2. Instructed patient to monitor movements and report decreases immediately. 3. Testing Counseled on routine third-trimester labs per guidelines. Discussed potential need for ultrasound which will be scheduled for next visit due to current scheduling delays. 4. Preeclampsia Precaution Educated on preeclampsia signs: severe headache, vision changes, right upper quadrant pain, sudden swelling. Advised urgent reporting of symptoms and discussed blood pressure monitoring given patient's history of preeclampsia in prior . 5. Labor Precautions Reviewed labor signs: regular contractions, pelvic pressure, back pain, bleeding, or fluid leakage. Instructed to seek immediate care for these symptoms. Patient reported no current contractions or leaking. 6. Lifestyle and Delivery Preparation Reinforced vitamins, nutrition, and safe activity. Discussed plan, pain management, and . Advised on labor preparation and confirmed patient has preparations ready for baby to come home. 7. Psychosocial Support Assessed emotional well-being and offered resources for mental health or parenting support.
== END 2025-07-14 11:07 | disposition home or self-care (01) ==
LOC: HODSOBC 10:34
PROVIDERS: Supervising Provider Obstetrics & Gynecology; Visit Provider Obstetrics & Gynecology
DX: O09.293 Supervision of pregnancy with other poor reproductive or obstetric history, third trimester (principal); Z3A.37 37 weeks gestation of pregnancy; Z87.440 Personal history of urinary (tract) infections; Z23 Encounter for immunization
CPT/HCPCS: 90686; J9060

== ENCOUNTER 2025-07-19 23:15 | Inpatient (IN) | payer MEDICAID, SELFPAY ==
[2025-07-19 23:27] VITALS: BMI 30.2
[2025-07-19 23:32] VITALS: BP 119/83; PULSE 98
[2025-07-19 23:33] VITALS: BP 119/83; PULSE 98; RESP 18; RESP 96; TEMP 37.1
[2025-07-20] VITALS (30 sets, daily range): BP systolic 100–136; BP diastolic 45–96; PULSE 73–119; RESP 16–22; TEMP 36.3–37.2; O2SAT 97–100
[2025-07-20 00:20] LABS: Basophils # (Auto) 0.0 Thou/mm3 (0.0-0.2); Basophils % (Auto) 0 % (0-2.5); Eosinophils # (Auto) 0.1 Thou/mm3 (0.0-0.5); Eosinophils % (Auto) 1 % (0-10); Hematocrit 34.5 % (36.0-46.0); Hemoglobin 10.0 g/dL (12.0-16.0); Immature Granulocytes Auto 0.04 Thou/mm3 (0.00-0.00); Lymphocytes # (Auto) 3.7 Thou/mm3 (1.0-4.8); Lymphocytes % (Auto) 39 % (10-50); Mean Corpuscular HGB Conc 29.0 g/dl (31.0-37.0); Mean Corpuscular Hemoglobin 21.1 pg (25.0-35.0); Mean Corpuscular Volume 73 fL (80-100); Monocytes # (Auto) 0.6 Thou/mm3 (0.0-0.8); Monocytes % (Auto) 6 % (0-12); Neutrophils # (Auto) 5.0 Thou/mm3 (1.8-7.7); Neutrophils % (Auto) 53 % (37-80); Nucleated Red Blood Cell # 0.02 Thou/mm3 (0.00-0.00); Nucleated Red Blood Cell % 0 /100 WBC (0); Platelet Count 222 Thou/mm3 (140-440); RDW Standard Deviation 47.8 fL (36.4-46.3); Red Blood Count 4.73 Miln/mm3 (4.00-5.20); White Blood Count 9.4 Thou/mm3 (3.6-11.0)
[2025-07-20] MEDS: TERBUTALINE SULF INJ 1 MG/ML VIAL 0.25 MG SC (00:30)
--- NOTE | 2025-07-20 00:49 | PD.LDHP ---
Documentation for date of: 07/20/25 OB Labor/Induct. HPI History of Present Illness : 2 Para: 1 Term pregnancies: 1 pregnancies: 0 Living children: 1 History of Abortions: Spontaneous and Elective: 0 History of sections: Yes History of : No LAWRENCE: 07/30/25 Gestational Age (weeks): 38 Gestational Age (days): 4 History of present illness: 25 years old at 38.4 weeks in labor/ has prior c section / she comes in labor at 3 cm and 80% and -2 and SROM . she is uncomfortable and uC every 3 minutes . Plan emergency LTCS now . R/B and options discussed with the patient History of Present Dating criteria: LMP confirmed by 2nd trimester US Adequate Care: Yes Ultrasounds: other (see records ) Obstetrical complications: other (prior c section) Medical complications: none Labs Maternal Blood Type: O Pos Labs: Negative: Hepatitis B, HIV, Chlamydia and Gonorrhea Review of Systems Review of Systems Systems Reviewed: All systems reviewed, normal except as documented Past Medical History Surgical History SURGICAL: Positive Section Meds Home Medications and Allergies Home Medications ?Medication ?Instructions ?Recorded ?Confirmed ?Type mwnnluxd-gln-Ix-FA 1 mg 1 tab PO QDAY 01/21/24 07/20/25 History tablet Allergies Allergy/AdvReac Type Severity Reaction Status Date / Time No Known Allergies Allergy Verified 07/20/25 00:33 OB Exam Physical Exam Vital signs: Temp Pulse Resp BP Pulse Ox 98.7 F 81 18 136/96 H 100 07/19/25 23:33 07/20/25 00:32 07/19/25 23:33 07/20/25 00:32 07/20/25 00:48 Narrative: Size equal to dates uterus non tender regular / contractions non tender FHR is category 1 feta presentation is vertex pelvic exam 3 cm/ 80 % and -2 station / SROM OB Results Labs 07/20/25 00:05 Labs: Short CBC 07/20/25 Range/Units 00:05 WBC 9.4 (3.6-11.0) Thou/mm3 Hgb 10.0 L (12.0-16.0) g/dL Hct 34.5 L (36.0-46.0) % Plt Count 222 (140-440) Thou/mm3 OB Assessment & Plan Assessment and Plan (1) 38 weeks gestation of : Status: Acute (2) Previous section: Status: Acute (3) SROM (spontaneous rupture of membranes): Status: Acute (4) Labor abnormality: Status: Acute Additional Plan Plan: other (emergency repeat LTCS now as patient in labor / R/ B and options discussed with her ) Additional Plan Comment: Patient was given the reason for proceeding with surgery. She was given the risk benefits and options. She chose to proceed with the surgery. Risks of surgery to include risk of infection bleeding, possible injury to the surrounding organs like the urinary bladder, intestines, ureter, uterus, tubes, ovaries, nerves, blood vessels, possible risk of wound dehiscence later on or hernia development later on in future. However the surgery is done when the benefits outweigh the risks Possible risks of blood transfusion and options were also discussed. All questions answered Patient willing to proceed with emergency LTCS now
[2025-07-20 00:54] LABS: Syphilis Nonreactive (Nonreactive)
[2025-07-20] MEDS: RINGERS LACTATED 1000 ML 1,000 ML 100 ML IV (01:07)
[2025-07-20] MEDS: ceFAZolin/D5W 2 GM IV 2 GM/100 ML BAG IV (01:07)
[2025-07-20] MEDS: FAMOTIDINE INJ 10 MG/ML VIAL 2 ML 20 MG IV (01:07)
[2025-07-20] MEDS: METOCLOPRAMIDE INJ 5 MG/ML VIAL 2 ML 10 MG IVP (01:14)
--- NOTE | 2025-07-20 02:37 | PD.GYNPROC ---
Operative Note - FINANCIAL ADVISOR Procedure Date of procedure: 07/20/25 Procedure Performed: repeat LTCS Indication: at 38.4 weeks in labor and SROM, previous c section Pre-Op diagnosis: see indication Previous c section and at 38.4 weeks in labor with SROM Post-Op diagnosis: same Anesthesia type: Spinal Procedure description: After an informed consent patient was taken to the operating room, she was prepped and draped in the usual sterile fashion after receiving spinal anesthesia. A timeout was done. Surgical site infection prophylaxis was given Olivera was in place and draining clear urine SCDs were in place After verification of adequacy of anesthesia, a Pfannansteil incision was made 2 cm above the symphysis pubis and carried laterally on the skin and it was carried down to subcutaneous tissue and then to the rectus fascia, the rectus fascia was from underlying muscles by sharp and blunt dissection Peritoneal cavity was entered atraumatically A Aguilar retractor placed superiorly, and a bladder blade inferiorly Lower uterine segment was well-formed Incision made in the lower uterine segment, and amniotic sac ruptured, light meconium stained amniotic fluid Baby was delivered as cephalic Kiwi was used , 2 applications and no pop offs as fundal pressure was not adequate to deliver the head Cord clamped and cut and baby received by the waiting nursery team Cord blood collected, placenta removed spontaneously, uterus exteriorized and closed in a wet lap Uterine cavity clean dry of any remaining membranes with a dry lap, uterine incision closed with the help of 0 Monocryl in 2 layers in a running , interlocking fashion . Hemostasis is good Uterus is firm Both tubes and ovaries look normal Uterus is placed back in the peritoneal cavity in the pelvis Instrument needle and sponge count is correct, hemostasis was checked for again on the uterine incision and it is confirmed Peritoneal closure done with 2-0 Vicryl Rectus abdominis muscles approximated with 2-0 Vicryl/ monocryl Rectus fascia approximated with 0 Vicryl running sutures Subcutaneous tissue irrigated closed with and approximated with 3-0 plain catgut Skin approximated with 4-0 Monocryl Tape dressing applied with Dermabond ABD dressing placed on top Olivera is draining clear urine EBL is 600 cc Patient delivered a liveborn, viable baby with a good cry Estimated blood loss (ml): 600 Complications: none Narrative: see procedure Surgical staff ADRIENNE Dunham Operation Date: 07/20/25 01:45 <No data on this case meets the specified criteria> Diagnosis Problem List Completed Was Problem List Reviewed/Reconciled?: Yes
--- NOTE | 2025-07-20 02:40 | SUR.PHASEI ---
pt received to [facility] 2. vss. breathing even and unlabored. denies pain and nausea. dressing cdi to abdomen. martinez pad with moderate bleeding noted, changed. report from dr velazco and nurse gonzalez.
--- NOTE | 2025-07-20 02:41 | OBDSUM_ITS ---
Data (Schroeder) Data Hx Section: Yes RPR: Non-reactive : 2 Term: 1 : 0 Livin Abortions: Spontaneous & Theraputic: 0 Delivery Data (Schroeder) Labor Data Initiation of labor: Spontaneous ROM date: 07/20/25 ROM time: 00:19 Amniotic fluid description: Light Meconium Delivery Data EDC: 07/30/25 Gestational age (weeks): 38 Gestational age (days): 4 Delivered by: Ysabel Nelson Psychotherapist Social Worker at delivery: Yes Delivery Method Delivery method: Low Transverse Presentation: Vertex position: ROT Anesthesia Type Anesthesia Type: Spinal Anesthesia type: Spinal Delivery Room Medications Delivery room medications: Pitocin 20 u IV Placenta Placenta delivery description: Spontaneous Cord blood sent to lab: Yes EBL Estimated blood loss (ml): 600 Umbilical Cord cord description: 3 Vessels
--- NOTE | 2025-07-20 03:15 | SUR.PHASEI ---
report called to nurse ross in post . vss. breathing even and unlabored. dressing and martinez pad remain cdi. pt awake and alert excited to return to room and see baby. denies pain and nausea. transported to room via bed.
[2025-07-20 06:00] LABS: Basophils # (Auto) 0.0 Thou/mm3 (0.0-0.2); Basophils % (Auto) 0 % (0-2.5); Eosinophils # (Auto) 0.0 Thou/mm3 (0.0-0.5); Eosinophils % (Auto) 0 % (0-10); Hematocrit 22.9 % (36.0-46.0); Hemoglobin 7.0 g/dL (12.0-16.0); Immature Granulocytes Auto 0.09 Thou/mm3 (0.00-0.00); Lymphocytes # (Auto) 1.7 Thou/mm3 (1.0-4.8); Lymphocytes % (Auto) 13 % (10-50); Mean Corpuscular HGB Conc 30.6 g/dl (31.0-37.0); Mean Corpuscular Hemoglobin 22.0 pg (25.0-35.0); Mean Corpuscular Volume 72 fL (80-100); Monocytes # (Auto) 0.7 Thou/mm3 (0.0-0.8); Monocytes % (Auto) 6 % (0-12); Neutrophils # (Auto) 10.3 Thou/mm3 (1.8-7.7); Neutrophils % (Auto) 80 % (37-80); Nucleated Red Blood Cell # 0.00 Thou/mm3 (0.00-0.00); Nucleated Red Blood Cell % 0 /100 WBC (0); Platelet Count 169 Thou/mm3 (140-440); RDW Standard Deviation 48.0 fL (36.4-46.3); Red Blood Count 3.18 Miln/mm3 (4.00-5.20); White Blood Count 12.8 Thou/mm3 (3.6-11.0)
[2025-07-20] MEDS: DOCUSATE SOD 100 MG CAPSULE PO (08:28)
[2025-07-20] MEDS: KETOROLAC INJ 30 MG/ML VIAL IVP ×2 (08:29→17:19)
[2025-07-20] MEDS: OXYTOCIN in NS 20 units 20 UNIT/1,000 ML BAG 125 UNIT IV (10:02)
[2025-07-20] MEDS: SODIUM CHLORIDE 0.9% 1000 ML 1,000 ML 999 ML IV (15:05)
[2025-07-20] MEDS: SODIUM CHLORIDE 0.9% 1000 ML 1,000 ML 125 ML IV (16:05)
[2025-07-21] VITALS (14 sets, daily range): BP systolic 114–148; BP diastolic 69–93; PULSE 66–92; RESP 16–20; TEMP 36.7–37.3; O2SAT 96–99
[2025-07-21 06:50] LABS: Basophils # (Auto) 0.0 Thou/mm3 (0.0-0.2); Basophils % (Auto) 0 % (0-2.5); Eosinophils # (Auto) 0.1 Thou/mm3 (0.0-0.5); Eosinophils % (Auto) 1 % (0-10); Hematocrit 23.5 % (36.0-46.0); Immature Granulocytes Auto 0.04 Thou/mm3 (0.00-0.00); Lymphocytes # (Auto) 2.2 Thou/mm3 (1.0-4.8); Lymphocytes % (Auto) 25 % (10-50); Mean Corpuscular HGB Conc 29.4 g/dl (31.0-37.0); Mean Corpuscular Hemoglobin 21.4 pg (25.0-35.0); Mean Corpuscular Volume 73 fL (80-100); Monocytes # (Auto) 0.5 Thou/mm3 (0.0-0.8); Monocytes % (Auto) 6 % (0-12); Neutrophils # (Auto) 5.8 Thou/mm3 (1.8-7.7); Neutrophils % (Auto) 68 % (37-80); Nucleated Red Blood Cell # 0.00 Thou/mm3 (0.00-0.00); Nucleated Red Blood Cell % 0 /100 WBC (0); Platelet Count 160 Thou/mm3 (140-440); RDW Standard Deviation 48.4 fL (36.4-46.3); Red Blood Count 3.22 Miln/mm3 (4.00-5.20); White Blood Count 8.6 Thou/mm3 (3.6-11.0)
[2025-07-21 06:55] LABS: Hemoglobin 6.9 g/dL (12.0-16.0)
[2025-07-21] MEDS: KETOROLAC INJ 30 MG/ML VIAL IVP ×2 (07:53→15:51)
[2025-07-21] MEDS: DOCUSATE SOD 100 MG CAPSULE PO (07:53)
--- NOTE | 2025-07-21 08:31 | PC.NURSE ---
CALLED LAB, SPOKE TO MELISSA, ASKED IF PHLEBO WAS TO COME DRAW RETYPE DUE TO 2UNITS PRBCS ORDERED FOR PT, PER MELISSA PT DOES NOT NEED RETYPE, TRANSFERRED TO BLOOD BANK, SPOKE TO THEM, PER LAB 2UNITS ARE READY
[2025-07-21] MEDS: HYDROcodone/APAP 5/325 TABLET 1 TAB PO ×2 (09:24→22:09)
--- NOTE | 2025-07-21 10:27 | ESPR_ITS ---
Subjective Subjective Interval history: Patient is a 25-year-old G2 now P2002 postoperative day #1 status post repeat C- section in labor 07/20/2025 at approximately 2:[address] Nelson delivered the patient. Today the patient is resting in bed. She appears pale. The father the baby is at bedside. She is breast and bottlefeeding. She states her pain is controlled and she is voiding and ambulating. Her predelivery hemoglobin was 10 but dropped to a 7.0 and this morning it is 6.9. The plan will be to transfuse the patient 2 units of packed blood blood cells. She denies heavy bleeding. Her last baby was born by only 18 months ago. Exam Vital Signs Temp Pulse Resp BP Pulse Ox O2 Del Method 98.0 F 85 20 114/75 97 Room Air 07/21/25 09:50 07/21/25 09:50 07/21/25 09:50 07/21/25 09:50 07/21/25 09:50 07/21/25 04:05 Narrative Exam Patient is alert and orient x 3 in no apparent distress She is pale but cooperative Fundus is firm nontender at umbilicus Incision is clean dry and intact Extremities show 2+ pitting edema of ankles. No erythema. Objective Labs 07/21/25 06:05 Labs: Laboratory Results - last 24 hr 07/20/25 07/21/25 00:05 06:05 WBC 8.6 RBC 3.22 L Hgb 6.9 L* Hct 23.5 L MCV 73 L MCH 21.4 L MCHC 29.4 L RDW Std Deviation 48.4 H Plt Count 160 Neut % (Auto) 68 Lymph % (Auto) 25 Christian % (Auto) 6 Eos % (Auto) 1 Baso % (Auto) 0 Neut # (Auto) 5.8 Lymph # (Auto) 2.2 Christian # (Auto) 0.5 Eos # (Auto) 0.1 Baso # (Auto) 0.0 Immature Gran # (Auto) 0.04 H Absolute Nucleated RBC 0.00 Immature Gran % 1 H Nucleated RBC % 0 Blood Type O Positive Antibody Screen NEGATIVE Crossmatch See Detail Blood Bank Wristband ID Yes Assessment & Plan Problem List (1) care following delivery: Status: Acute (2) Anemia affecting : Problem details: Patient's hemoglobin started out at a 10. Postop her hemoglobin is dropped to a 6.9. The plan will be to give the patient 2 units packed red blood cells. Recheck hemoglobin tomorrow. Sheryl. Status: Acute Time Spent With Patient Time: Total time spent is greater than 50% in coordination of care (as documented) at patient's floor/unit and/or counseling patient: Time with patient: less than 15 minutes
[2025-07-21] MEDS: FUROSEMIDE INJ 10 MG/ML VIAL 2 ML 20 MG IVP (12:35)
[2025-07-21 19:34] LABS: Basophils # (Auto) 0.0 Thou/mm3 (0.0-0.2); Basophils % (Auto) 0 % (0-2.5); Eosinophils # (Auto) 0.2 Thou/mm3 (0.0-0.5); Eosinophils % (Auto) 2 % (0-10); Hematocrit 31.5 % (36.0-46.0); Hemoglobin 9.7 g/dL (12.0-16.0); Immature Granulocytes Auto 0.04 Thou/mm3 (0.00-0.00); Lymphocytes # (Auto) 1.9 Thou/mm3 (1.0-4.8); Lymphocytes % (Auto) 20 % (10-50); Mean Corpuscular HGB Conc 30.8 g/dl (31.0-37.0); Mean Corpuscular Hemoglobin 23.7 pg (25.0-35.0); Mean Corpuscular Volume 77 fL (80-100); Monocytes # (Auto) 0.6 Thou/mm3 (0.0-0.8); Monocytes % (Auto) 6 % (0-12); Neutrophils # (Auto) 6.8 Thou/mm3 (1.8-7.7); Neutrophils % (Auto) 71 % (37-80); Nucleated Red Blood Cell # 0.02 Thou/mm3 (0.00-0.00); Nucleated Red Blood Cell % 0 /100 WBC (0); Platelet Count 178 Thou/mm3 (140-440); RDW Standard Deviation 51.2 fL (36.4-46.3); Red Blood Count 4.10 Miln/mm3 (4.00-5.20); White Blood Count 9.5 Thou/mm3 (3.6-11.0)
[2025-07-22 04:00] VITALS: BP 122/82; PULSE 61; RESP 15; TEMP 36.7; O2SAT 97
[2025-07-22 05:59] LABS: Basophils # (Auto) 0.0 Thou/mm3 (0.0-0.2); Basophils % (Auto) 0 % (0-2.5); Eosinophils # (Auto) 0.2 Thou/mm3 (0.0-0.5); Eosinophils % (Auto) 2 % (0-10); Hematocrit 28.9 % (36.0-46.0); Hemoglobin 9.0 g/dL (12.0-16.0); Immature Granulocytes Auto 0.03 Thou/mm3 (0.00-0.00); Lymphocytes # (Auto) 2.6 Thou/mm3 (1.0-4.8); Lymphocytes % (Auto) 29 % (10-50); Mean Corpuscular HGB Conc 31.1 g/dl (31.0-37.0); Mean Corpuscular Hemoglobin 23.6 pg (25.0-35.0); Mean Corpuscular Volume 76 fL (80-100); Monocytes # (Auto) 0.6 Thou/mm3 (0.0-0.8); Monocytes % (Auto) 7 % (0-12); Neutrophils # (Auto) 5.4 Thou/mm3 (1.8-7.7); Neutrophils % (Auto) 61 % (37-80); Nucleated Red Blood Cell # 0.02 Thou/mm3 (0.00-0.00); Nucleated Red Blood Cell % 0 /100 WBC (0); Platelet Count 152 Thou/mm3 (140-440); RDW Standard Deviation 50.7 fL (36.4-46.3); Red Blood Count 3.81 Miln/mm3 (4.00-5.20); White Blood Count 8.9 Thou/mm3 (3.6-11.0)
[2025-07-22] MEDS: HYDROcodone/APAP 5/325 TABLET 1 TAB PO (06:14)
[2025-07-22 08:00] VITALS: BP 128/90; PULSE 70; RESP 18; TEMP 36.8; O2SAT 98
[2025-07-22 08:13] VITALS: BP 128/90; PULSE 70
[2025-07-22] MEDS: FUROSEMIDE INJ 10 MG/ML 4ML VIAL 20 MG IVP (08:13)
[2025-07-22] MEDS: DOCUSATE SOD 100 MG CAPSULE PO (08:13)
--- NOTE | 2025-07-22 10:38 | ESPR_ITS ---
Subjective Subjective Interval history: Delivery type: Patient doing well this morning. No acute complaints. Ambulating, tolerating p.o., and voiding without difficulty. HTN/Pre-E screen negative: No CP, SOB, YATES, visual changes, RUQ pain. : Yes Lochia: diminishing Bowel: Flatus + / BM + UOP: Voiding freely Exam Vital Signs Temp Pulse Resp BP Pulse Ox O2 Del Method 98.3 F 70 18 128/90 H 98 Room Air 07/22/25 08:00 07/22/25 08:13 07/22/25 08:00 07/22/25 08:13 07/22/25 08:00 07/22/25 08:00 Constitutional Constitutional: no acute distress Routine HEENT Exam Head: Present normocephalic and atraumatic Eye: Present EOMI and PERRL ENT: Present mucous membranes moist Routine Neck Exam Neck: Present supple and trachea midline Routine Respiratory Exam Respiratory: Present chest non-tender, lungs clear, normal breath sounds and no resp distress Routine Cardiovascular Exam Cardiovascular: Present RRR Routine Abdominal Exam Abdominal: Present soft and normoactive bowel sounds Routine Extremities Exam Extremities: Present full ROM Routine Skin Exam Skin: Present intact, dry and warm Routine Neurological Exam Neurological: Present alert, oriented X3 and CN II-XII intact Routine Psychiatric Exam Psychiatric: Present normal affect and normal thought process Objective Labs 07/22/25 04:30 Labs: Laboratory Results - last 24 hr 07/20/25 07/21/25 07/22/25 00:05 19:23 04:30 WBC 9.5 8.9 RBC 4.10 3.81 L Hgb 9.7 L D 9.0 L Hct 31.5 L 28.9 L MCV 77 L 76 L MCH 23.7 L 23.6 L MCHC 30.8 L 31.1 RDW Std Deviation 51.2 H 50.7 H Plt Count 178 152 Neut % (Auto) 71 61 Lymph % (Auto) 20 29 [place] % (Auto) 6 7 Eos % (Auto) 2 2 Baso % (Auto) 0 0 Neut # (Auto) 6.8 5.4 Lymph # (Auto) 1.9 2.6 [place] # (Auto) 0.6 0.6 Eos # (Auto) 0.2 0.2 Baso # (Auto) 0.0 0.0 Immature Gran # (Auto) 0.04 H 0.03 H Absolute Nucleated RBC 0.02 H 0.02 H Immature Gran % 0 0 Nucleated RBC % 0 0 Blood Type O Positive Antibody Screen NEGATIVE Crossmatch See Detail Blood Bank Wristband ID Yes Assessment & Plan Problem List (1) care following delivery: Status: Acute Assessment and plan: PPD/POD#2 1. Continue routine care 2. Transition to PO meds. 3. Encourage to ambulate/ breast-feed 4. Anticipate discharge home today. 5. Patient received 2 units of packed RBC yesterday. Posttransfusion hemoglobin is 9.0 (2) Anemia affecting : Status: Acute Time Spent With Patient Time: Total time spent is greater than 50% in coordination of care (as documented) at patient's floor/unit and/or counseling patient:
--- NOTE | 2025-07-22 10:40 | PD.LDDS ---
DS: Providers Provider Date of admission: 07/19/25 23:40 Primary care physician: Physician No Primary/Family Admitting Provider: Ysabel Nelson MD Attending Provider on Admission: Amilcar Rasmussen MD Consults: 07/20/25 02:43 Referral Routine Comment: Attending Provider on DC: Amilcar Rasmussen MD Discharging Provider: Amilcar Rasmussen MD DS: Diagnosis Discharge Diagnosis (1) care following delivery: Status: Acute (2) SROM (spontaneous rupture of membranes): Status: Acute Problem List Completed Was Problem List Reviewed/Reconciled?: Yes Summary/Hosp Course Brief History: 25 years old at 38.4 weeks in labor/ has prior c section / she comes in labor at 3 cm and 80% and -2 and SROM . she is uncomfortable and uC every 3 minutes . Plan emergency LTCS now . R/B and options discussed with the patient Peripartum Data Delivery Method: Low Transverse Procedures: Procedures Operation Date: 07/20/25 01:45 <No data on this case meets the specified criteria> Operation Date: 07/20/25 01:45 Actual Procedure Side Surgeon p in OR Ysabel Nelson MD Time Spent with Patient Time attestation: Total time spent providing and/or coordinating discharge services: Exam Vital Signs Temp Pulse Resp BP Pulse Ox O2 Del Method 98.3 F 70 18 128/90 H 98 Room Air 07/22/25 08:00 07/22/25 08:13 07/22/25 08:00 07/22/25 08:13 07/22/25 08:00 07/22/25 08:00 Discharge Plan Plan Patient Disposition: HOME (Self Care) Patient condition on transfer: Stable Prescriptions/Referrals Prescriptions/Med Rec: New hydrocodone-acetaminophen 5-325 mg tablet 1 tab PO Q6H MDD 4 PRN (Reason: pain) 5 Days Qty: 20 0RF docusate sodium [Stool Softener] 100 mg capsule 100 mg PO QDAY 30 Days Qty: 30 0RF ibuprofen 600 mg tablet 600 mg PO Q6H MDD 4 PRN (Reason: fever or pain) 10 Days Qty: 40 0RF Continued ferrous sulfate 325 mg (65 mg iron) tablet 325 mg PO BID 90 Days Qty: 180 2RF vuipnbvq-hgp-Gh-FA 1 mg Tablet 1 tab PO QDAY Referrals: Amilcar Rasmussen MD [Physician, BUSINESS SYSTEMS ANALYST] No Primary/Family,Physician [Primary Care Provider] Patient/Caregiver Discharge Instructions Discharge Activity: activity as tolerated Education Materials: After a , Section (), C Section Dc Print Language: Vietnamese Stand Alone Forms: Kristen Award Info., Patient Portal Info Letter, DC from Surgery Discharge Order Discharge Orders: Discharge (Routine); Ordered 07/22/25 Ordered By: Amilcar Rasmussen Planned Discharge Date 07/22/25
== END 2025-07-22 12:14 | disposition home or self-care (01) | DRG 540 ==
LOC: S4SX 07-20 02:19 → S4NX 07-20 03:12
PROVIDERS: Obstetrics & Gynecology; Admitting Provider Obstetrics & Gynecology; Visit Provider Obstetrics & Gynecology
PROC: (CPT 59514; principal; 2025-07-20 01:30)
DX: O34.211 Maternal care for low transverse scar from previous cesarean delivery (principal); O77.0 Labor and delivery complicated by meconium in amniotic fluid; Z37.0 Single live birth; Z3A.38 38 weeks gestation of pregnancy; O99.02 Anemia complicating childbirth
CPT/HCPCS: 36415; 59025; 85025; 86780; 86850; 86900; 86901; 86923; A4217; A4649; J0689; J1885; J1938; J2274; J2371; J2590; J2765; J3010; J3105; J3490; J7030; J7120; P9016; A9270; J2270